=== PATIENT | female | born 1990 | race Caucasian/White ===

== ENCOUNTER → 2017-08-11 | Outpatient (CLI) | payer OTHER ==
[~2017-08-11] MED LIST: ALBUAER19 INH; AMPH10TA2 PO; CLR10 PO; MULTTAB58 PO
[2017-08-11 16:59] LABS: BASO % 1.1 %; BASO ABS # 0.05 K/uL (0-0.2); EOS % 4.5 %; HEMOGLOBIN 12.8 g/dL (12.0-16.0); LYMPH % 36.3 %; LYMPH ABS # 1.61 K/uL (1.2-3.4); MEAN CELL VOLUME 95.7 fL (80-100); MEAN CORPUSCULAR HEMOGLOBIN 32.2 pg (25-34); MEAN CORPUSCULAR HGB CONC 33.7 g/dl (32-36); MEAN PLATELET VOLUME 10.4 fL (7.4-10.4); MONO % 9.2 %; MONO ABS # 0.41 K/uL (0.11-0.59); NEUT % 48.9 %; NEUT ABS # 2.17 K/uL (1.4-6.5); PLATELET COUNT 384 K/uL (130-400); RED CELL DISTRIBUTION WIDTH SD 49.3 fL (36.4-46.3); WHITE BLOOD COUNT 4.44 K/uL (4.8-10.8)
[2017-08-11 17:26] LABS: ALT/SGPT 23 U/L (12-78); AST/SGOT 26 U/L (15-37); BLOOD UREA NITROGEN 12 mg/dl (7-18); CALCIUM 9.1 mg/dl (8.5-10.1); CARBON DIOXIDE 30 mmol/L (21-32); GLUCOSE 86 mg/dl (70-99); POTASSIUM 4.4 mmol/L (3.5-5.1); SODIUM 138 mmol/L (136-145)
[2017-08-11 17:33] LABS: ALKALINE PHOSPHATASE 41 U/L (45-117); CHOLESTEROL 176 mg/dl (0-200); LDL CHOLESTEROL CALCULATED 79 mg/dl; TOTAL PROTEIN 7.4 gm/dl (6.4-8.2)
== END | disposition home or self-care (01) ==
LOC: C.LABBC 12:48
PROVIDERS: ATTEND Neuromusculoskeletal Medicine & OMM
DX: Z00.00 Encounter for general adult medical examination without abnormal findings (principal); K58.9 Irritable bowel syndrome, unspecified

== ENCOUNTER → 2017-09-02 | Day surgery (SDC) | payer OTHER ==
[2017-08-30 14:38] VITALS: Ht 162.6 cm; Wt 50.9 kg
[~2017-09-02] VITALS: Ht 162.6 cm; Wt 50.9 kg
[~2017-09-02] MED LIST changes: -ALBUAER19 INH; -AMPH10TA2 PO; +IUD'IUD; +LIDOCAINE HCL 2% 2 ML VIAL (20MG/ML) ONE; +LISD1CAP3 PO; +LYSI100010 PO; +MULT1CHW39 PO; -MULTTAB58 PO; +OMEG10007 PO; +ONDANSETRON INJ 2 MG/ML 2 ML VIAL ONE; +PROPOFOL IV EMULSION 10 MG/ML 20 ML VIAL IV ONE; +SODIUM CHLORIDE 0.9% 500ML 500 ML IV ONE; +VALA500T60 PO; +VNTHFA/IN INH
[2017-09-02 11:30] VITALS: TEMP 36.5
--- NOTE | 2017-09-02 12:11 | Endo History and Physical ---
History & Physical Date of Service: Sep 02, 2017. Chief Complaint: History of polyps Referring Physician: Dr. Kevyn Argueta History of Present Illness 27 yo CF who presents for colonoscopy secondary to history of colon polyps. Past Surgical History Hx Cardiac Surgery: No Hx Internal Defibrillator: No Hx Pacemaker: No Hx Abdominal Surgery: No Hx of Implantable Prosthesis: No Hx Post-Op Nausea and Vomiting: Yes Hx Cancer Surgery: No Hx Thoracic Surgery: No Hx Orthopedic: Yes (RT HIP CARTILAGE REPAIR) Hx Urinary Tract Surgery: No Family History None Social History Smoking Status: Never Smoker Hx Substance Use: No Hx Alcohol Use: Yes (OCCASIONALLY) Allergies Coded Allergies: Penicillins (Verified Allergy, Severe, HIVES RASH, 09/02/17) Beer (Verified Allergy, Unknown, "I turn blue and get itchy", 08/30/17) Nickel (Verified Allergy, Unknown, RASH, 08/30/17) HEMP (Verified Adverse Reaction, Unknown, RASH, 09/02/17) Uncoded Allergies: CANNABIST (Allergy, Unknown, ANAPHYLAXIS, 08/30/17) Current Medications Reported Home Medications Medications Dose Route/Sig Max Daily Dose Days Date Category Valtrex (Valacyclovir HCl) 500 Mg Tab 1 Tab PO DAILY PRN 30 09/02/17 Reported Lysine (Lysine Hcl) 1,000 Mg Tab 1,000 PO DAILY 09/02/17 Reported Claritin (Loratadine) 10 Mg Tab 10 Mg PO DAILY 09/02/17 Reported Paragard Intrauterine Promotions Associate (Iud's) 1 Iud Iud 1 Dose 08/30/17 Reported [place]-3 (Fish Oil) 1 Ea Cap 1 Cap PO QAM 08/30/17 Reported Multivitamin Gummies [place]ome (Multiple Vitamins W/ Minerals) 1 Chw Chw 1 Dose PO QAM 08/30/17 Reported Vyvanse (Lisdexamfetamine Dimesylate) 10 Mg Cap 1 Cap PO DIRECTED 08/30/17 Reported Ventolin Hfa (Albuterol) 200 Puffs/89288 Mcg Aers 2-4 Puffs INH Q6H PRN 08/30/17 Reported Vital Signs Weight (Kilograms): 50.91 Height (Feet): 5 Height (Inches): 4 Date Time Temp Pulse Resp B/P (MAP) Pulse Ox O2 Delivery O2 Flow Rate FiO2 09/02/17 11:30 36.5 52 18 102/71 (81) 100 Room Air Physical Exam General Appearance: WD/WN, no apparent distress Respiratory/Chest: Auscultation: breath sounds normal Cardiovascular: Heart Auscultation: RRR Abdomen: Bowel Sounds: normal Inspection & Palpation: soft, non-distended, no tenderness, guarding & rebound Assessment and Plan Assessment: 27 yo CF who presents for colonoscopy secondary to history of colon polyps. Plan: Proceed with colonoscopy.
--- NOTE | 2017-09-02 13:08 | GI REPORT ---
Procedure Date: 09/02/2017 11:57 AM Procedure: Colonoscopy Indications: High risk colon cancer surveillance: Personal history of colonic polyps Medicines: Monitored Anesthesia Care Complications: No immediate complications. Estimated Blood Loss: Estimated blood loss: none. Procedure: Pre-Anesthesia Assessment: - Prior to the procedure, a History and Physical was performed, and patient medications and allergies were reviewed. The patient's tolerance of previous anesthesia was also reviewed. The risks and benefits of the procedure and the sedation options and risks were discussed with the patient. All questions were answered, and informed consent was obtained. Prior Anticoagulants: The patient has taken no previous anticoagulant or antiplatelet agents. ASA Grade Assessment: II - A patient with mild systemic disease. After reviewing the risks and benefits, the patient was deemed in satisfactory condition to undergo the procedure. After I obtained informed consent, the scope was passed under direct vision. Throughout the procedure, the patient's blood pressure, pulse, and oxygen saturations were monitored continuously. The scope was introduced through the anus and advanced to the terminal ileum. The colonoscopy was performed without difficulty. The patient tolerated the procedure well. The quality of the bowel preparation was good. The terminal ileum, ileocecal valve, appendiceal orifice, and rectum were photographed. Findings: Skin tags were found on perianal exam. A 5 mm polyp was found in the rectum. The polyp was sessile. The polyp was removed with a hot snare. Resection and retrieval were complete. Several random biopsies were obtained with cold forceps for histology in the entire colon. Impression: - Perianal skin tags found on perianal exam. - One 5 mm polyp in the rectum, removed with a hot snare. Resected and retrieved. - Several random biopsies were obtained in the entire colon. Recommendation: - Resume previous diet. - Continue present medications. - Repeat colonoscopy for surveillance based on pathology results. - Return to primary care physician as previously scheduled. Nate Sheth DO 09/02/2017 1:07:50 PM This report has been signed electronically. Note Initiated On: 09/02/2017 11:57 AM I attest to the content of the Intraoperative Record and orders documented therein, exceptions below
--- NOTE | 2017-09-02 13:09 | Discharge Instructions ---
Endoscopy Patient Instructions Date / Procedure(s) Performed Sep 02, 2017. Colonoscopy Allergy Information Coded Allergies: Penicillins (Verified Allergy, Severe, HIVES RASH, 09/02/17) Beer (Verified Allergy, Unknown, "I turn blue and get itchy", 08/30/17) Nickel (Verified Allergy, Unknown, RASH, 08/30/17) HEMP (Verified Adverse Reaction, Unknown, RASH, 09/02/17) Uncoded Allergies: CANNABIST (Allergy, Unknown, ANAPHYLAXIS, 08/30/17) Discharge Date / Findings Sep 02, 2017. Rectal polyp Random colon biopsies External anal skin tags Medication Instructions OK to resume all medications today as prescribed Reported Home Medications Medications Dose Route/Sig Max Daily Dose Days Date Category Valtrex (Valacyclovir HCl) 500 Mg Tab 1 Tab PO DAILY PRN 30 09/02/17 Reported Lysine (Lysine Hcl) 1,000 Mg Tab 1,000 PO DAILY 09/02/17 Reported Claritin (Loratadine) 10 Mg Tab 10 Mg PO DAILY 09/02/17 Reported Paragard Intrauterine Fender Mechanic Apprentice (Iud's) 1 Iud Iud 1 Dose 08/30/17 Reported [place]-3 (Fish Oil) 1 Ea Cap 1 Cap PO QAM 08/30/17 Reported Multivitamin Gummies [place]ome (Multiple Vitamins W/ Minerals) 1 Chw Chw 1 Dose PO QAM 08/30/17 Reported Vyvanse (Lisdexamfetamine Dimesylate) 10 Mg Cap 1 Cap PO DIRECTED 08/30/17 Reported Ventolin Hfa (Albuterol) 200 Puffs/38501 Mcg Aers 2-4 Puffs INH Q6H PRN 08/30/17 Reported Provider Instructions Activity Restrictions - No exercising or heavy lifting for 24 hours. - Do not drink alcohol the day of the procedure. - Do not drive a car or operate machinery until the day after the procedure. - Do not make any important decisions or sign important papers in 24 hours after the procedure. Following Day: - Return to full activity which may include returning to work/school. Diet Start your diet with liquids and light foods (jello, soup, juice, toast). Then eat your usual diet if not nauseated. Treatment For Common After Affects For mild abdominal pain, bloating, or excessive gas: - Rest - Eat lightly - Lie on right side Follow-Up Information Follow-up with Dr. Kevyn Argueta as scheduled Anesthesia Information What You Should Know You have had a procedure that required some medicine to reduce anxiety and discomfort. This treatment is called moderate sedation. After receiving the treatment, you may be sleepy, but you will be able to breathe on your own. The effects of the treatment may last for several hours. Follow these instructions along with Activity/Diet recommendations noted above: * Do NOT do anything where dizziness or clumsiness would be dangerous. * Rest quietly at home today, then you can be up and about tomorrow. * Have a responsible person stay with you the rest of today. * You may have had an I.V. today. If so, you may take the dressing off later today. Recommendations Call your doctor if: * Trouble breathing * Continuous vomiting for more than 24 hours * Temperature above 101 degrees * Severe abdominal pain or bloating * Pain not relieved by pain medicine ordered * There is increased drainage or redness from any incision * A large amount of rectal bleeding greater than 2-3 tablespoons. (If you had a polyp/s removed or have hemorrhoids, a small amount of blood - from the rectum is to be expected.) * You have any unanswered questions or concerns. IN THE EVENT OF A SERIOUS EMERGENCY, GO TO THE NEAREST EMERGENCY ROOM Your discharge instructions were prepared by provider Nate Sheth. Patient Instructions Signature Page Nevaeh Martin Patient (or Guardian) Signature/Date: I have read and understand the instructions given to me by my caregivers. Caregiver/RN/Doctor Signature/Date: The above-named patient and/or guardian has received patient instructions on this date. + Original Patient Signature Page (only) stays with chart. Please make copy for patient.
[2017-09-02 13:39] VITALS: BP 98/66; PULSE 46; O2SAT 98
--- NOTE | 2017-09-02 14:23 | Anesthesiology Progress Note ---
Anesthesia Post Op Note Date & Time Sep 02, 2017 at 14:22 Vital Signs Pain Intensity: 0 Vital Signs Past 12 Hours Date Time Temp Pulse Resp B/P (MAP) Pulse Ox O2 Delivery O2 Flow Rate FiO2 09/02/17 13:39 46 20 98/66 (77) 98 Room Air 09/02/17 13:24 47 18 93/63 (73) 98 Room Air 09/02/17 13:09 58 20 95/49 (64) 100 Room Air 09/02/17 11:30 36.5 52 18 102/71 (81) 100 Room Air Notes Mental Status: alert / awake / arousable, participated in evaluation Pt Amnestic to Procedure: Yes Nausea / Vomiting: adequately controlled Pain: adequately controlled Airway Patency, RR, SpO2: stable & adequate BP & HR: stable & adequate Hydration State: stable & adequate Anesthetic Complications: no major complications apparent
== END | disposition home or self-care (01) ==
LOC: C.GI 10:58
PROVIDERS: ATTEND Internal Medicine
DX: Z12.11 Encounter for screening for malignant neoplasm of colon (principal); K62.1 Rectal polyp; Z86.010 Personal history of colon polyps; J45.909 Unspecified asthma, uncomplicated; Z88.0 Allergy status to penicillin; Z98.890 Other specified postprocedural states

== ENCOUNTER → 2017-09-15 | Outpatient (CLI) | payer OTHER ==
[~2017-09-15] MED LIST changes: -LIDOCAINE HCL 2% 2 ML VIAL (20MG/ML) ONE; -ONDANSETRON INJ 2 MG/ML 2 ML VIAL ONE; -PROPOFOL IV EMULSION 10 MG/ML 20 ML VIAL IV ONE; -SODIUM CHLORIDE 0.9% 500ML 500 ML IV ONE
== END | disposition home or self-care (01) ==
LOC: C.PAPS 10:03
PROVIDERS: ATTEND Obstetrics & Gynecology
DX: Z12.4 Encounter for screening for malignant neoplasm of cervix (principal)

== ENCOUNTER → 2017-11-16 | Outpatient (CLI) | payer OTHER ==
[2017-11-19 04:24] LABS: ALDOLASE** TC 66985R 5 U/L (0.0-8.1); ANA SCREEN TC 249X POSITIVE (NEGATIVE); ANTI-SS-A 6.2 POS AI (<1.0 NEG); ANTI-SS-B <1.0 NEG AI (<1.0 NEG); ANTICARDIOLIPID AB IGA <11 APL (< = 11); COMPLEMENT C3 TC 44859W 82 MG/DL (90-180); COMPLEMENT C4 TC 44982E 11 MG/DL (16-47); MICROSOMAL AB 2 IU/ML (<9)
== END | disposition home or self-care (01) ==
LOC: C.LAB1850 08:56
PROVIDERS: ATTEND Internal Medicine Rheumatology
DX: R76.8 Other specified abnormal immunological findings in serum (principal); M79.1 Myalgia; M24.80 Other specific joint derangements of unspecified joint, not elsewhere classified

== ENCOUNTER → 2017-12-22 | Outpatient (CLI) | payer OTHER ==
[2017-12-27 02:16] LABS: CLAM CLASS 0; CLAM IGE <0.10 KU/L; CRAB CLASS 0; CRAB IGE <0.10 KU/L; LOBSTER CLASS 0; LOBSTER IGE <0.10 KU/L; PECAN NUT CLASS 0; PECAN NUT IGE <0.10 KU/L; PISTACHIO CLASS 0; PISTACHIO IGE <0.10 KU/L; RAST ALMOND CLASS 0; RAST ALMOND IGE <0.10 KU/L; SHRIMP CLASS 0; SHRIMP IGE <0.10 KU/L
== END | disposition home or self-care (01) ==
LOC: C.LAB1850 15:34
PROVIDERS: ATTEND Internal Medicine Pulmonary Disease
DX: J30.1 Allergic rhinitis due to pollen (principal); T78.00XA Anaphylactic reaction due to unspecified food, initial encounter; X58.XXXA Exposure to other specified factors, initial encounter